=== PATIENT | female | born 1995 | race Caucasian/White ===

== ENCOUNTER 2016-12-18 12:58 | Emergency (ER) | payer SELFPAY ==
[~2016-12-18] VITALS: Ht 165.1 cm; Wt 97.5 kg
[2016-12-18 13:00] VITALS: BP 144/98; PULSE 113; RESP 16; TEMP 99.4; O2SAT 96
[2016-12-18 13:03] VITALS: PULSE 112; RESP 20; TEMP 99.7; O2SAT 97
--- NOTE | 2016-12-18 13:19 | PD ---
HPI Chief Complaint: ENT Complaint Time Seen by Provider: 13:15 Travel History International Travel<30 days: No Contact w/Intl Traveler<30days: No Traveled to known affect area: No History of Present Illness HPI 21-year-old female presents emergency Department with complaint of sore throat and subjective fever 2 days. Denies limp throat, difficulty swallowing, unusual drooling. Reports painful swallowing. Unable to report Tmax because she has not taken her temperature. Denies headache, abdominal pain, vomiting, nasal congestion, ear pain. Her [id number] was diagnosed with strep throat and she has been in contact with her for the past few days. She has taken Aleve for symptom management. Symptoms are moderate in severity. No known allergies. Has no other medical complaints. No other modifying factors or associated signs and symptoms. PFSH Past Medical History Hx Anticoagulant Therapy: No Cardiovascular Problems: No Chemotherapy: No Cerebrovascular Accident: No Diabetes: No Respiratory: No ?: Not Past Surgical History Hysterectomy: No Social History Tobacco Use: No Allergies-Medications (Allergen,Severity, Reaction): Coded Allergies: No Known Allergies (Unverified , 12/18/16) Reported Meds & Prescriptions Reported Meds & Active Scripts Active Amoxicillin 500 Mg Cap 500 Mg PO BID 10 Days Review of Systems Except as stated in HPI: all other systems reviewed are Neg Physical Exam Narrative GENERAL: Well-nourished, well-developed female patient, in no acute distress; low-grade fever 99.7; nontoxic-appearing SKIN: Warm and dry. No rash. HEAD: Atraumatic. Normocephalic. EYES: Pupils equal and round at 3 mm with brisk reaction. No scleral icterus. No injection or drainage. PERRLA. ENT: Mucosa pink and dry. Pharynx with 2+ tonsils; with erythema, exudate, and edema. No Uvular edema. No uvular, palatal, or tonsillar deviation. Airway patent. Voice is hoarse. Fell breath. EARS: Bilateral pinnae and external canals appear within normal limits. Bilateral tympanic membranes without erythema, dullness or perforation.. NECK: Trachea midline. Anterior cervical lymphadenopathy and tenderness. CARDIOVASCULAR: Regular rate and rhythm. No murmur appreciated. RESPIRATORY: No accessory muscle use. Clear to auscultation. Breath sounds equal bilaterally. GASTROINTESTINAL: Abdomen soft, non-tender, nondistended. Hepatic and splenic margins not palpable. Bowel sounds are active 4 quadrants. MUSCULOSKELETAL: No obvious deformities. No clubbing. No cyanosis. No edema. NEUROLOGICAL: Awake and alert. Oriented 3. No obvious cranial nerve deficits. Motor grossly within normal limits. Normal speech. Moves all extremities. PSYCHIATRIC: Appropriate mood and affect; insight and judgment normal. Data Data Last Documented VS Vital Signs Date Time Temp Pulse Resp B/P (MAP) Pulse Ox O2 Delivery O2 Flow Rate FiO2 12/18/16 13:26 89 12/18/16 13:03 99.7 20 97 12/18/16 13:00 144/98 (113) Orders Orders Ibuprofen (Motrin) (12/18/16 13:30) Amoxicillin (Trimox) (12/18/16 13:30) [facility] Medical Decision Making Medical Screen Exam Complete: Yes Emergency Medical Condition: Yes Medical Record Reviewed: Yes Differential Diagnosis Exudative pharyngitis, strep pharyngitis, viral pharyngitis, less likely peritonsillar abscess Narrative Course 21-year-old female physical exam consistent with exudative pharyngitis. Denies lump in throat, difficulty swallowing, unusual drooling. Patient has low-grade fevers 99.7. Reports subjective fever at home. Cannot report MAXIMUM TEMPERATURE. She is nontoxic-appearing and denies vomiting. Amoxicillin and ibuprofen administered in the ER. Amoxicillin prescribed for home. Instructed patient to follow up with primary care provider. Patient verbalizes understanding and agreement with treatment plan. Patient is medically cleared and stable for discharge. Discussed reasons to return to the emergency department. Patient agrees with treatment plan. The patients vital signs are stable and the patient is stable for outpatient follow-up and treatment. Patient discharged home, stable and in no acute distress. Diagnosis Primary Impression: Exudative pharyngitis Referrals: [facility] Primary Care Physician Patient Instructions: General Instructions, Pharyngitis (ED) Departure Forms: Tests/Procedures, Work Release Enter return to work date: Dec 20, 2016 Additional Instructions: Take Antibiotics as prescribed and complete full course of antibiotics Throw away and change your toothbrush 24 hours after starting antibiotics Get plenty of sleep/rest Rest your voice Drink plenty of fluids to prevent dehydration Use warm saltwater gargles to soothe throat pain Use an air humidifier/turn off ceiling fans Use throat lozenges as needed for sore throat Use ibuprofen or acetaminophen as needed to relieve pain and fever Follow-up with your primary care provider within 2-4 days Return immediately to the emergency department with worsening of symptoms Med/Other Pt SpecificInfo: Prescription(s) given Scripts Amoxicillin (Amoxicillin) 500 Mg Cap 500 MG PO BID for Infection for 10 Days, CAP 0 Refills Prov: Pepper Atkinson 12/18/16 Disposition: 01 DISCHARGE HOME Condition: Stable Pepper Atkinson Dec 18, 2016 13:19
[2016-12-18] MEDS ORDERED: AMOX500C PO (13:21)
[2016-12-18 13:26] VITALS: PULSE 89
[2016-12-18] MEDS ORDERED: IBUPROFEN 800 MG TAB PO ONE (13:30)
[2016-12-18] MEDS ORDERED: AMOXICILLIN (TRIHYDRATE) 500 MG CAP PO ONE (13:30)
== END 2016-12-18 14:05 | disposition home or self-care (01) ==
LOC: NEPD 12:58
DX: J02.9 Acute pharyngitis, unspecified (principal); R50.9 Fever, unspecified
CPT/HCPCS: 99283